=== PATIENT | male | born 1960 | race Caucasian/White ===

== ENCOUNTER 2020-02-04 05:44 | Day surgery (SDC) | payer OTHER, BC, SELFPAY ==
[2020-02-04] VITALS (8 sets, daily range): BP systolic 95–148; BP diastolic 65–101; PULSE 66–87; RESP 16–18; TEMP 35.7–37.2; O2SAT 96–100; BMI 28.7
--- NOTE | 2020-02-04 06:15 | PCM.HP.STD ---
Problem List (1) Personal history of colonic polyps Status: Acute History of Present Illness Date of Admission: 02/04/20 The patient is a 59 year old M who has a personal history of colon polyp on a polypectomy that was performed for him in 2015. That was a sizable polyp at 12 mm. It was an adenomatous polyp. There was no dysplasia. He denies bright red blood per rectum or melena. He does chew tobacco. His mother of breast cancer and his father of lung cancer. He has not had any deep venous thrombosis. He denies DC or stroke Past Medical History Past Medical History (Chronic Problems): Chronic Problems Obesity (Chronic) Benign essential HTN (Chronic) Allergies No Known Allergies Allergy (Verified 02/04/20 05:58) Home Medications: Ambulatory Orders Medication Instructions Recorded Atenolol [Tenormin (beta Russell)] 25 mg PO DAILY 02/03/20 Cetirizine HCl [Zyrtec] 10 mg PO DAILY 02/03/20 Rosuvastatin Calcium [Crestor] 5 mg PO .Q2DAYS 02/03/20 Surgical History: noncontributory Smoking Status: Current every day smoker Tobacco Use: Chew Review of Systems Constitutional: Denies: Chills, Fever Cardiovascular: Denies: Chest Pain Respiratory: Denies: Cough Gastrointestinal: Denies: Abdominal Pain, Hematochezia, Melena Endocrine: Denies: Change in Body Habitus VTE Information - Inpt Only VTE Present on Admission: No - Physical Exam Vitals/I&O's: Vital Signs Temp Pulse Resp BP Pulse Ox 96.3 F L 87 16 122/94 H 98 02/04/20 05:59 02/04/20 05:59 02/04/20 05:59 02/04/20 05:59 02/04/20 05:59 Oxygen Delivery Method Room Air Weight: 211 lb 10.3 oz Body Mass Index (BMI) 28.7 General: Alert, Oriented x3, Cooperative Oral: Moist Mucosa Lungs: Clear to auscultation Cardiovascular: Regular rate, Regular Rhythm Abdomen: Bowel Sounds Present, Soft, Non Tender Neurological: - - Normal cognition Psych/Mental Status: Normal Affect Microbiology Past 72 Hours 02/03/20 11:26 Interface Orders SARS-CoV-2 Antigen (Rapid) - Final Assessment/Plan All Active Problems Personal history of colonic polyps (Acute) I recommend to the patient a colonoscopy with possible biopsy or polypectomy is indicated. He is aware of the technique, benefit, risk, alternatives. He has had an opportunity to ask and have questions answered. He presents via open access today. Rickie Martin M.D., F.A.C.S.
[2020-02-04] MEDS: Lactated Ringers 1,000 ML 100 ML IV (06:25)
--- NOTE | 2020-02-04 06:55 | OP.COLON_ITS ---
Patient Name: Zac Cotter Procedure Date: 02/04/2020 6:12 AM Date of : 1960 Age: 59 Procedure: Colonoscopy Indications: High risk colon cancer surveillance: Personal history of colonic polyps Providers: Rickie Martin MD Referring MD: Chandrakant Azul Medicines: Midazolam 4 mg IV, Meperidine 100 mg IV Patient Profile: Last Colonoscopy: 2015. Complications: No immediate complications. Procedure: Pre-Anesthesia Assessment: - Prior to the procedure, a History and Physical was performed, and patient medications and allergies were reviewed. The patient's tolerance of previous anesthesia was also reviewed. The risks and benefits of the procedure and the sedation options and risks were discussed with the patient. All questions were answered, and informed consent was obtained. Prior Anticoagulants: The patient has taken no previous anticoagulant or antiplatelet agents. ASA Grade Assessment: II - A patient with mild systemic disease. After reviewing the risks and benefits, the patient was deemed in satisfactory condition to undergo the procedure. After I obtained informed consent, the scope was passed under direct vision. Throughout the procedure, the patient's blood pressure, pulse, and oxygen saturations were monitored continuously. The colonoscope was introduced through the anus and advanced to the cecum, identified by appendiceal orifice and ileocecal valve. The colonoscopy was performed without difficulty. The patient tolerated the procedure well. The quality of the bowel preparation was adequate to identify polyps. The ileocecal valve and the appendiceal orifice were photographed. Moderate Sedation: Moderate (conscious) sedation was personally administered by the endoscopist. The following parameters were monitored: oxygen saturation, heart rate, blood pressure, and response to care. Total physician intraservice time was 15 minutes. Scope In: 6:33:19 AM Scope Withdrawal Time 0 hours 7 minutes 58 seconds Scope Out: 6:47:13 AM Total Procedure Duration Time 0 hours 13 minutes 54 seconds Findings: Hemorrhoids were found on perianal exam. The digital rectal exam findings include non-thrombosed internal hemorrhoids and internal hemorrhoids that prolapse with straining, but spontaneously regress to the resting position (Grade II). Pertinent negatives include normal prostate (size, shape, and consistency). Multiple diverticula were found in the sigmoid colon and descending colon. Impression: - Hemorrhoids found on perianal exam. - Non-thrombosed internal hemorrhoids and internal hemorrhoids that prolapse with straining, but spontaneously regress to the resting position (Grade II) found on digital rectal exam. - Diverticulosis in the sigmoid colon and in the descending colon. - No specimens collected. Recommendation: - Discharge patient to home. - Resume previous diet. - Continue present medications. - Repeat colonoscopy in 5 years for surveillance. Procedure Code(s): --- Professional --- 47212, Colonoscopy, flexible; diagnostic, including collection of specimen(s) by brushing or washing, when performed (separate procedure) 51481, 59, Moderate sedation services provided by the same physician or other qualified health manager urgent care performing the diagnostic or therapeutic service that the sedation supports, requiring the presence of an independent trained observer to assist in the monitoring of the patient's level of consciousness and physiological status; initial 15 minutes of intraservice time, patient age 5 years or older Diagnosis Code(s): --- Professional --- Z86.010, Personal history of colonic polyps K64.1, Second degree hemorrhoids K57.30, Diverticulosis of large intestine without perforation or abscess without bleeding CPT copyright 2017 [employer]. All rights reserved. The codes documented in this report are preliminary and upon cloth tester review may be revised to meet current compliance requirements. Rickie Martin MD 02/04/2020 6:55:14 AM This report has been signed electronically. Number of Addenda: 0 Note Initiated On: 02/04/2020 6:12 AM
--- NOTE | 2020-02-04 06:56 | OP.CCLET_ITS ---
02/04/2020 Chandrakant Azul Re : Colonoscopy procedure for Zac Cotter Dear Jorge Alberto This procedure was performed on Tuesday, February 04, 2020. My impressions and recommendations are as follows: Impressions : - Hemorrhoids found on perianal exam. - Non-thrombosed internal hemorrhoids and internal hemorrhoids that prolapse with straining, but spontaneously regress to the resting position (Grade II) found on digital rectal exam. - Diverticulosis in the sigmoid colon and in the descending colon. - No specimens collected. Recommendations : - Discharge patient to home. - Resume previous diet. - Continue present medications. - Repeat colonoscopy in 5 years for surveillance. My findings are described in the full procedure note, which is enclosed. If I can be of further assistance, please feel free to contact me at Doctor phone number(s): Work: . Sincerely, Rickie Martin MD 02/04/2020 6:55:14 AM This report has been signed electronically.
== END 2020-02-04 07:35 | disposition home or self-care (01) ==
LOC: EN 05:44 → AC 05:44
PROVIDERS: PCP Family Medicine; Referring Provider Family Medicine; Visit Provider Surgery
PROC: 0DJD8ZZ Inspection of Lower Intestinal Tract, Via Natural or Artificial Opening Endoscopic (ICD-10-PCS; CPT 45378; principal; 2020-02-04 06:55)
DX: Z12.11 Encounter for screening for malignant neoplasm of colon (principal); Z86.010 Personal history of colon polyps; K64.1 Second degree hemorrhoids; K57.30 Diverticulosis of large intestine without perforation or abscess without bleeding; E66.9 Obesity, unspecified; I10 Essential (primary) hypertension; Z63.4 Disappearance and death of family member; Z80.3 Family history of malignant neoplasm of breast; Z87.19 Personal history of other diseases of the digestive system; Z68.28 Body mass index [BMI] 28.0-28.9, adult
CPT/HCPCS: 45378; 87426; C9803; J7120

== ENCOUNTER 2023-08-10 11:18 | Emergency (ER) | payer OTHER, BC, SELFPAY ==
[2023-08-10 11:19] VITALS: BP 166/105; PULSE 94; RESP 16; TEMP 36.6; O2SAT 96; BMI 29.0
--- NOTE | 2023-08-10 11:42 | CT_ITS ---
STUDY: CT ABDOMEN AND PELVIS WITH CONTRAST - URINARY TRACT REASON FOR EXAM: Male, 62 years old. PAIN RADIATION DOSAGE (If Supplied By Facility): CTDIvol = ( 17.70 ) mGy, DLP = ( 1221.32 ) mGycm TECHNIQUE: IV 100mL Isovue-370 was administered. Transaxial images were obtained from the dome of the diaphragm to the symphysis pubis subsequent to intravenous contrast ministration. Multiplanar coronal and sagittal images were reformatted. The protocol utilizes one or more of the following dose reduction techniques: automated exposure control, adjustment of mA and/or kV according to patient size,and/or use of iterative reconstruction technique. COMPARISON: No relevant prior comparison study available FINDINGS: The visualized lung bases are unremarkable. The visualized portions of the heart are within normal limits. Normal liver. Normal gallbladder and extrahepatic biliary system. There are splenic granulomas. Normal pancreas. Normal bilateral adrenal glands. Normal visualized stomach. Normal small intestine. Normal colon. The appendix is visualized and appears normal. Normal abdominal aorta. No retroperitoneal adenopathy. Normal right kidney. Normal left kidney. Normal urinary bladder. There is enlargement of the prostate gland. There are calcifications within the prostate gland. Normal abdominal wall. There are diffuse degenerative changes of the lumbar spine. CT/Abdomen/Pelvis W IV Cont ONLY IMPRESSION: No acute intra-abdominal process. Enlarged prostate gland. Degenerative changes of the lumbar spine. Electronically Signed: Charo Ray MD at 12:31 EDT ,
--- NOTE | 2023-08-10 11:43 | EDS_ITS ---
HPI History of Present Illness Chief Complaint: Abd Pain Informant: patient and spouse/S.O. Narrative Narrative: 62-year-old male presenting to the emergency room chief complaint of right lower quadrant abdominal pain. Symptoms began on with a gradual onset of pain. He describes it as an ache that waxes and wanes. It is worse with movement and walking bumps in the road. Today he had a doughnut around 0700 hrs. and a cup of coffee has been drinking water since. He does endorse some anorexia stating food just really does not sound good to him. Has not had a bowel movement today but did have a bowel movement yesterday which she describes as normal. Notes his urine is darker than normal. He had prior kidney stone which has not felt like this. He does note some radiation into the low back. No vomiting no definitive fever. He has had prior left inguinal hernia repair as well as a tonsillectomy as a child. Patient denies any testicular pain/discomfort. No burning with urination. [facility] Medical History (Updated 08/10/23 @ 13:[address] Vega Leos DO) Benign essential HTN Home Medications ?Medication ?Instructions ?Recorded ?Last Taken ?Type atenolol 25 mg tablet 25 mg PO DAILY 02/03/20 02/04/20 History cetirizine 10 mg capsule 10 mg PO DAILY 02/03/20 Unknown History rosuvastatin 5 mg tablet 5 mg PO .Q2DAYS 02/03/20 Unknown History oxycodone-acetaminophen 5 mg-325 1 tab PO Q6H PRN PRN Pain 3 days 08/10/23 Unknown Rx mg tablet #12 TABLETS Allergy/AdvReac Type Severity Reaction Status Date / Time No Known Allergies Allergy Verified 08/10/23 11:20 Surgical History (Updated 08/10/23 @ 11:[address] Vega Leos DO) H/O left inguinal hernia repair History of tonsillectomy Social History Smoking Status: Current every day smoker tobacco type: cigarettes ROS ROS ED Constitutional Constitutional ED: Reports fever(s) and subjective; Denies chills or weight loss Eyes Eyes: Denies change in vision or diplopia ENT ENT ED: Denies ear pain, rhinorrhea or sore throat Cardiovascular Cardiovascular: Denies chest pain, orthopnea, palpitations or racing heartbeat Respiratory/Chest Respiratory/Chest: Denies cough, dyspnea or orthopnea Gastrointestinal Gastrointestinal: Reports abdominal pain, constipation and other Details: Anorexia ; Denies diarrhea, nausea or vomiting Genitourinary Genitourinary ED: Denies dysuria, hematuria or urinary frequency Musculoskeletal Musculoskeletal: Reports back pain; Denies arthralgias, myalgias or neck pain Integumentary Denies abscess or rash Neurologic Neurologic: Denies headache(s) or weakness Psychiatric Psychiatric: Denies anxiety, depression, suicidal ideation or suicidal thoughts Endocrine Endocrinology: Denies polydipsia, polyphagia or polyuria Allergic/Immunologic Allergic/Immunologic ED: Denies mouth swelling, tongue swelling or urticaria EXAM Physical Exam Const Vital Signs: 08/10/23 11:19 Temperature 97.8 F Temperature Source Temporal Pulse Rate 94 Respiratory Rate 16 Blood Pressure 166/105 H Blood Pressure Mean 125 Pulse Ox 96 Oxygen Delivery Method Room Air Positive well nourished and well developed General Appearance ED: well developed HEENT Reports normocephalic, head/scalp atraumatic and moist mucous membranes Eyes PERRL and EOMs intact bilaterally Neck no lymphadenopathy, supple and no JVD Resp normal respiratory effort and clear to auscultation bilaterally Cardio regular rate, regular rhythm and no murmurs GI non-distended and no masses Inspection: Negative for abdominal distention Auscultation: normoactive bowel sounds Palpation: soft, tender RLQ and guarding Back/Spine no CVA tenderness and normal ROM Extremity normal to inspection General Extremety ED: Negative for edema General Extremity: Negative for edema Neuro oriented x3 and CN's II-XII intact bilaterally Sensorium / Orientation: alert Motor Exam: strength 5/5 throughout Psych mental status grossly normal Mood & Affect: Negative for depressed or tearful Skin no rashes or lesions noted and no wounds MDM MDM MDM Narrative Medical decision making narrative: Basic blood work was obtained shows a white count of 4.7 hemoglobin 15.6 platelet count of 180. There is an elevated monocyte count of 12.2%. BNP liver enzymes are within normal limits. Urinalysis normal. CT of the ab pelvis with IV contrast was obtained. Normal-appearing appendix per radiology review. No obvious intra-abdominal pathology. Patient received morphine Zofran and fluids as well as later Dilaudid. This point I do not see an obvious cause for the patient's pain. Would recommend follow-up 1 to 2 days if continued symptoms return if worsening or concerns. I will write for some Percocet. Patient is comfortable with the plan History & Record Review Discussion w/independent historian: Patient and Significant other Lab Data Attestation: I reviewed the patient's lab results. Labs: Laboratory Results - last 24 hr 08/10/23 08/10/23 11:30 12:30 WBC 4.7 RBC 5.23 Hgb 15.6 Hct 46.1 MCV 88.1 MCH 29.8 MCHC 33.8 RDW Std Deviation 41.6 RDW Coeff of Edgardo 13.0 Plt Count 180 MPV 8.7 Immature Gran % (Auto) 0.400 Neut % (Auto) 62.8 Lymph % (Auto) 23.4 [place] % (Auto) 12.2 H Eos % (Auto) 0.6 Baso % (Auto) 0.6 Absolute Neuts (auto) 3.0 Absolute Lymphs (auto) 1.11 Nucleated RBC % 0 Sodium 136 Potassium 3.8 Chloride 105 Carbon Dioxide 28.0 Anion Gap 3 L BUN 11 Creatinine 1.01 Estim Creat Clear Calc 92.76 Est GFR (MDRD) Af Amer 96 Est GFR (MDRD) Non-Af 80 BUN/Creatinine Ratio 10.9 Glucose 105 Calcium 8.5 Total Bilirubin 0.70 AST 13 L ALT 20 Alkaline Phosphatase 102 Total Protein 6.6 Albumin 3.7 Globulin 2.9 Albumin/Globulin Ratio 1.3 Urine Color Yellow Urine Clarity Clear Urine pH 6.5 Ur Specific [place] 1.010 Urine Protein Negative Urine Glucose (UA) Normal Urine Ketones Negative Urine Occult Blood 25 H Urine Nitrite Negative Urine Bilirubin Negative Urine Urobilinogen Normal Ur Leukocyte Esterase Negative Urine RBC 0 SEEN Urine WBC 0 SEEN Ur Squamous Epith Cells 0 SEEN Urine Bacteria 0 SEEN Urine Mucus 0 SEEN Radiography Diagnostic Testing: Clinical Impression(s) from Imaging Studies Abdomen/Pelvis CT 08/10/23 11:42 IMPRESSION: No acute intra-abdominal process. Enlarged prostate gland. Degenerative changes of the lumbar spine. Electronically Signed: Charo Ray MD at 12:31 EDT , Discharge Plan Triage Chief Complaint: Abd Pain ED Provider: Vega Leos Dx/Rx/DC Orders Clinical Impression: Abdominal pain Instructions: Abdominal Pain Prescriptions: New oxycodone-acetaminophen 5-325 mg tablet 1 tab PO Q6H PRN PRN (Reason: Pain) 3 Days Qty: 12 0RF No Action atenolol 25 MG tablet 25 mg PO DAILY rosuvastatin 5 MG tablet 5 mg PO .Q2DAYS cetirizine 10 MG capsule 10 mg PO DAILY Primary Care Provider: JULIAN YEPEZ Referrals: NOT,DEFINED [Non-Staff] - Activity Restrictions/Additional Instructions: If continued symptoms please return for repeat examination 1-2 days or follow-up with primary care. If any new symptoms please return to emergency. Print Language: [place]i Disposition Disposition: Home, Self Care
[2023-08-10 11:49] LABS: Absolute Lymphocyte Count 1.11 X10^3/uL (0.83-4.51); Basophil# 0.03 X10^3/uL; Basophil% 0.6 % (0-1); Eosinophil# 0.03 X10^3/uL; Eosinophils% 0.6 % (0-5); Hematocrit 46.1 % (40-54); Hemoglobin 15.6 g/dL (13.0-16.5); Lymphocyte # 1.11 X10^3/ul (0.83-4.51); Lymphocyte % 23.4 % (19-41); Mean Corp Hgb Conc 33.8 g/dL (32-36); Mean Corpuscular Hgb 29.8 pg (27.0-32.0); Mean Corpuscular Volume 88.1 fL (80-94); Mean Platelet Vol. 8.7 fl (6.2-12.0); Monocyte# 0.58 X10^3/uL; Monocyte% 12.2 % (0-10); NRBC Flagged by Analyzer 0 % (0-5); Neutrophil # 2.97 X10^3/uL (2.7-7.7); Neutrophil % 62.8 % (47-70); Platelet Count 180 K/mm3 (150-450); RBC Distribution Width SD 41.6 fl (35.1-43.9); Red Blood Count 5.23 M/mm3 (4.6-6.2); White Blood Count 4.7 K/mm3 (4.4-11.0)
[2023-08-10] MEDS: 0.9% Normal Saline (1000mL) 1,000 ML 999 ML IV (11:49)
[2023-08-10] MEDS: Morphine 4 MG/ML Syringe IV (11:49)
[2023-08-10] MEDS: Ondansetron 4 MG/2 ML Vial IV (11:49)
[2023-08-10 12:06] LABS: ALB/GLOB Ratio 1.3 RATIO (0.9-2.4); AST(SGOT) 13 U/L (15-37); Alanine Aminotransfer ALT/SGPT 20 U/L (16-61); Albumin, Serum 3.7 g/dL (3.2-5.0); Alkaline Phosphatase 102 U/L (45-117); Anion Gap 3 (5-15); BUN 11 mg/dL (7-18); BUN/Creat Ratio 10.9 RATIO (10-20); Calcium,Total 8.5 mg/dL (8.5-10.1); Chloride 105 mmol/L (98-107); Creatinine, Serum 1.01 mg/dL (0.70-1.30); EST Glomerular Filtration Rate 80 mL/min (>60); Est Glom Filt Rate - Afr Amer 96 mL/min (>60); Estimated Creatinine Clearance 92.76 ml/min; Globulin 2.9 g/dL (2.2-4.2); Glucose 105 mg/dL (74-106); Potassium 3.8 mmol/L (3.5-5.1); Protein, Total 6.6 g/dL (6.4-8.2); Sodium Level 136 mmol/L (136-145)
[2023-08-10 12:36] LABS: Bacteria 0 SEEN /hpf (None Seen); Mucous, Urine 0 SEEN /hpf (<or=2+); Red Blood Cells-Urine 0 SEEN /hpf (0-5); Squamous Epithelial Cells - UA 0 SEEN /hpf (0-5); White Blood Cells 0 SEEN /hpf (0-5)
[2023-08-10 12:37] LABS: Color, Urine Yellow (Yellow); Glucose, Dipstick Normal (Normal); Ketone-Dipstick Negative (Negative); Leukocyte Esterase-Dipstick Negative /ul (Negative); Nitrite-Dipstick Negative (Negative); Occult Blood-Urine 25 /ul (Negative); Protein-Dipstick Negative (Negative); Urine Bilirubin Dipstick Negative (Negative); Urine Clarity Clear (Clear); Urine Urobilinogen Normal (Normal); Urine pH 6.5 (5.0 - 8.0)
[2023-08-10] MEDS: HYDROmorphone 1 MG/ML Syringe IV (12:48)
[2023-08-10 13:19] VITALS: BP 138/56; PULSE 78; RESP 16; O2SAT 98
[2023-08-10 13:44] VITALS: PULSE 78; RESP 16; TEMP 36.4; O2SAT 98
== END 2023-08-10 13:44 | disposition home or self-care (01) ==
PROVIDERS: Emergency Provider Emergency Medicine; PCP Nurse Practitioner Family; Visit Provider Emergency Medicine
DX: R10.31 Right lower quadrant pain (principal); F17.210 Nicotine dependence, cigarettes, uncomplicated; I10 Essential (primary) hypertension; Z79.899 Other long term (current) drug therapy
CPT/HCPCS: 74177; 80053; 81001; 85025; 96361; 96374; 96375; 99284; Q9967; A4216; J2405

== ENCOUNTER 2024-01-24 13:41 | Emergency (ER) | payer OTHER, BC, SELFPAY ==
[2024-01-24 13:42] VITALS: BP 150/91; PULSE 83; RESP 18; TEMP 36.4; O2SAT 100; BMI 29.4
--- NOTE | 2024-01-24 14:47 | EX.ED.VIS.EY ---
HPI History of Present Illness Chief Complaint: Eye Problem [facility] Medical History Benign essential HTN Home Medications ?Medication ?Instructions ?Recorded ?Last Taken ?Type atenolol 25 mg tablet 25 mg PO DAILY 02/03/20 02/04/20 History cetirizine 10 mg capsule 10 mg PO DAILY 02/03/20 Unknown History rosuvastatin 5 mg tablet 5 mg PO .Q2DAYS 02/03/20 Unknown History oxycodone-acetaminophen 5 mg-325 1 tab PO Q6H PRN PRN Pain 3 days 08/10/23 Unknown Rx mg tablet #12 TABLETS ciprofloxacin HCl 0.3 % eye drops 1 drp RIGHT EYE Q6H 5 days #10 mL 01/24/24 Unknown Rx Allergy/AdvReac Type Severity Reaction Status Date / Time No Known Allergies Allergy Verified 01/24/24 13:42 Surgical History H/O left inguinal hernia repair History of tonsillectomy Social History Smoking Status: Current every day smoker tobacco type: cigarettes EXAM Physical Exam Const Vital Signs: 01/24/24 13:42 Temperature 97.6 F L Temperature Source Temporal Pulse Rate 83 Respiratory Rate 18 Blood Pressure 150/91 H Blood Pressure Mean 110 Pulse Ox 100 [facility] Narrative Medical decision making narrative: HISTORY OF PRESENT ILLNESS: 63-year-old male presents with right eye pain. Notes he was seen in urgent care and his eye numbed. He notes at urgent care they sent him to the emergency department because something was in his eye. The patient does not wear contacts REVIEW OF SYSTEMS: Pertinent positives: Eye pain Pertinent negatives: Loss of vision PHYSICAL EXAM: Nursing triage notes reviewed, Vital signs reviewed Constitutional: please see mdm HENT: MMM Eyes: Pupils equal round and reactive to light, Extraocular muscles intact, visual acuity 20/50 OD, 20/70 OS, fluorescein staining without evidence of globe rupture, there is a small metallic foreign body noted at the 12 o'clock position just superior to the pupil along the iris. There is conjunctival injection noted in the right eye. Skin: No rash or lesions noted MEDICAL DECISION MAKING: Chief Complaint: Eye pain Consults: Ophthalmology (Dr. Flowre) [facility] Narrative: Patient was hemodynamically stable, afebrile and nontoxic-appearing. Visual acuity grossly intact. Exam without evidence of corneal abrasion, globe rupture. Noted evidence of foreign body at the 12 o'clock position not involving the pupil. I considered the following differential diagnosis: Globe rupture, corneal abrasion, foreign body Tetracaine was placed, fluorescein staining done. No evidence of globe rupture. No evidence of corneal abrasion on fluorescein staining. Noted foreign body was removed partially with a Q-tip. Then attempted insulin needle removal however this failed. Patient will require ophthalmology evaluation. Offered acute transfer for ophthalmology however patient refused that he prefer to follow-up as outpatient Friday. Discussed with senior net web developer on-call Dr. Flower who recommended topical antibiotics and prompt follow-up in the next 24 to 48 hours. The patient and/or family, caregivers express understanding. The patient and/or family, caregivers agrees with the plan. Shared decision making: I will have a discussion with the patient and or visitors regarding risk/benefits of further testing or admission. They will be made aware of of the risk/benefits inherent in this decision they will be given the opportunity to voice understanding. Total critical care time today provided was at least 0 minutes. This excludes separately billable procedures. Critical care time (if documented) is secondary to the patient having high probability of clinically significant/life threatening deterioration in the patient's condition which required my urgent intervention. Impression: 1. Right eye foreign body 2. Acute high pain Dispo: Discharge home This note was generated with fundfindr dictation software. It may contain incorrect words, spelling, and punctuation that were not noted in review of the chart prior to signing. Discharge Plan Triage Chief Complaint: Eye Problem ED Provider: Bassam Oconnell Dx/Rx/DC Orders Instructions: ED RUST RING Prescriptions: New ciprofloxacin HCl 0.3 % drops 1 drp RIGHT EYE Q6H 5 Days Qty: 10 0RF Rx Instructions: administer while awake No Action atenolol 25 MG tablet 25 mg PO DAILY rosuvastatin 5 MG tablet 5 mg PO .Q2DAYS cetirizine 10 MG capsule 10 mg PO DAILY oxycodone-acetaminophen 5-325 mg tablet 1 tab PO Q6H PRN PRN (Reason: Pain) 3 Days Qty: 12 0RF Primary Care Provider: JULIAN YEPEZ Referrals: JULIAN YEPEZ CRNP [Primary Care Provider] - Activity Restrictions/Additional Instructions: Thank you for trusting us with your care today! Please take Tylenol (2 pills, 650 mg), ibuprofen (2 pills, 400 mg) every 6 hours as needed for pain and fever control. Please take topical antibiotics as prescribed. Please use tetracaine sparingly only 1 drop every 12 hours. Please return to the emergency department if your symptoms change or worsen. Please follow with your primary care physician for further outpatient evaluation and management. Print Language: Finnish Disposition Disposition: Home, Self Care Discharge Date/Time: 01/24/24 16:05
[2024-01-24] MEDS: Fluorescein 1 MG STRIP 1 STRIP EACH EYE (14:59)
[2024-01-24] MEDS: Tetracaine 0.5% Ophthalmic Bottle 1 DRP EACH EYE (14:59)
[2024-01-24] MEDS: Diphth,Pertuss(Acell),Tet Vac 0.5 ML Vial IM (15:59)
== END 2024-01-24 16:05 | disposition home or self-care (01) ==
PROVIDERS: Emergency Provider Emergency Medicine; PCP Nurse Practitioner Family; Visit Provider Emergency Medicine
DX: T15.91XA Foreign body on external eye, part unspecified, right eye, initial encounter (principal); I10 Essential (primary) hypertension; H57.11 Ocular pain, right eye; F17.210 Nicotine dependence, cigarettes, uncomplicated; W44.8XXA Other foreign body entering into or through a natural orifice, initial encounter; Z23 Encounter for immunization
CPT/HCPCS: 90471; 90715; 99282

== ENCOUNTER 2024-08-27 06:44 | Day surgery (SDC) | payer OTHER, BC, SELFPAY ==
[2024-08-27] VITALS (8 sets, daily range): BP systolic 106–140; BP diastolic 79–95; PULSE 60–80; RESP 16; TEMP 36.1–36.6; O2SAT 97–99; BMI 28.2
--- OUTSIDE RECORDS SUMMARY | 2024-08-27 06:46 | XMS RPT_ITS | CCD ---
Author Organization [place] [facility] Care Team Providers Care Rheumatology Nurse Name Role Phone TARYN ARTEAGA Attending Unavailable TARYN ARTEAGA Primary Care Unavailable TARYN ARTEAGA Admitting Unavailable Krista Azul Unavailable Mirna Robins Unavailable Unavailable Krista Azul MD Primary Care Provider KRISTA AZUL Primary Care Unavailable SPRING, JULIAN Attending Unavailable SPRING, JULIAN Referring Unavailable SPRING, JULIAN Primary Care Unavailable SPRING, JULIAN Referring Unavailable Ran Hernandez Attending Unavailable SPRING, JULIAN Primary Care Unavailable SPRING, JULIAN Attending Unavailable SPRING, JULIAN Referring Unavailable SPRING, JULIAN Primary Care Unavailable SPRING, JULIAN Primary Care Unavailable Bassam Oconnell Attending Unavailable Medications Current Medications Medication Drug Class(es) Dates Sig (Normalized) Sig (Original) acetaminophen 325 mg / HYDROcodone bitartrate 5 mg oral tablet (1 source) Opioid Agonist Start: 05-15-2016 take 1 tablet by mouth every four hours as needed HYDROcodone-acetam inophen (NORCO) 5-325 mg per tablet Take 1 tablet by mouth every 4 hours as needed. 15 tablet 05/15/2016 Active aspirin 81 mg delayed release oral tablet (1 source) Platelet Aggregation Inhibitor, Nonsteroidal Anti-inflammatory Drug take 1 tablet by mouth once daily aspirin, enteric coated (ASPIRIN, ENTERIC COATED) 81 mg EC tablet Take 81 mg by mouth once daily. Active atenolol 25 mg oral tablet (2 sources) beta-Adrenergic Russell take 1 tablet by mouth once daily atenolol (TENORMIN) 25 mg tablet Take 25 mg by mouth once daily. Active azithromycin 250 mg oral tablet (1 source) Macrolide Antimicrobial Start: 08-04-2020 End: 08-08-2020 Azithromycin 5 Day Dose Pack 250 mg oral tablet ; take as directed on package Quantity: 6 Refills: 0 Ordered: 04-Aug-2020 Mirna oRbins Start: 04-Aug-2020 End: 08-Aug-2020 Generic Substitution Allowed Comments: Do not take dairy products, antacids, or iron preparations within one hour of this medication.Finish all this medication unless otherwise directed by prescriber. Comment on above: Do not take dairy pr oducts, antacids, or iron preparations within one hour of this medication.Finish all this medication unless otherwise directed by prescriber. benzonatate 100 mg oral capsule (1 source) Non-narcotic Antitussive Start: 04-30-2019 take 2 capsules by mouth every eight hours as needed benzonatate (TESSALON PERLE) 100 mg capsule Take 2 capsules by mouth three times daily as needed. 30 capsule 04/30/2019 Active cetirizine hydrochloride 10 mg oral capsule (1 source) Histamine-1 Receptor Antagonist Cetirizine 10 mg cap Take 1 tablet by mouth as needed. Active OTC NUTRITIONAL SUPPLEMENT (1 source) OTC NUTRITIONAL SUPPLEMENT LIMU- seaweed nutrional supplement Active rosuvastatin calcium 5 mg oral tablet (1 source) HMG-CoA Reductase Inhibitor take 1 tablet by mouth once daily rosuvastatin (CRESTOR) 5 mg tablet Take 5 mg by mouth once daily. Active Problems Active Problems Problem Classification Problem Date Documented Da te Episodic/Chronic Disorders of lipid metabolism (1 source) Hyperlipidemia, unspecified; Translations: [Hyperlipidemia, unspecified] Onset: 08-23-2024 Chronic Essential hypertension (1 source) Essential (primary) hypertension; Translations: [Essential (primary) hypertension] Onset: 08-23-2024 Chronic Other injuries and conditions due to external causes (1 source) Foreign body of eye region; Translations: [Foreign body on external eye, part unspecified, right eye, initial encounter] 01-24-2024 Episodic Other upper respiratory infections (1 source) Acute maxillary sinusitis; Translations: [Acute maxillary sinusitis] 08-04-2020 Episodic Substance-related disorders (1 source) Nicotine dependence, other tobacco product, uncomplicated; Translations: [Nicotine dependence, other tobacco product, uncomplicated] Onset: 08-23-2024 Chronic Transient cerebral ischemia (1 source) Transient cerebral ischemia; Translations: [Transient cerebral ischemic attack, unspecified] Onset: 05-13-2016 05-13-2016 Chronic Unclassified (2 sources) COUGH CHEST CONGESTION SINUS 08-04-2020 Comment on above: COUGH CHEST CONGESTI ON SINUS Unclassified (1 source) Sinusitis, acute, maxillary 08-04-2020 Past or Other Problems Problem Classification Problem Date Documented Da te Episodic/Chronic Abdominal hernia (2 sources) Umbilical hernia; Translations: [Umbilical hernia without obstruction or gangrene] Onset: 04-23-2016 04-23-2016 Episodic Abdominal pain (1 source) Right inguinal pain; Translations: [Right lower quadrant pain] Onset: 04-23-2016 04-23-2016 Episodic Other eye disorders (1 source) Unspecified disorder of eye and adnexa; Translations: [Unspecified disorder of eye and adnexa] Onset: 02-12-2024 Episodic Residual codes; unclassified (1 source) Tobacco use and exposure - finding; Translations: [Tobacco use] Onset: 05-13-2016 05-13-2016 Episodic Results Test Name Value Interpretation Reference Range Facil ity CNOVon 01-24-2024 [facility] MUNIR PARHAM ([id number]) 1960 M Date Time Provider Department 01/24/24 1:30 PM JOHN ROSARIO [facility] During your visit today, we recorded the following information about you: Temperature Pulse Respiration Blood pressure 96.9 degrees 98/minute 18/minute 130/84 Weight 98.5 kg John Rosario APRN.MATHEMATICS LECTURER 01/24/2024 1:43 PM Signed Subjective HPI Nontoxic-appearing male presents urgent care chief complaint right eye pain. Duration of symptoms 1 day. Associate symptoms right eye pain light sensitivity. States pain is worsening. Rates pain 9 out of 10. States vision is slightly blurry. Was blowing the leaves does not know if he has something in his eye. This was on . At that time he did not notice any foreign body sensation. Also does work as a janitorial maintenance worker. Does not know if he got a piece of metal in the thigh. OTC medications none. does not wear contacts. No flashes light or floaters. Past medical history prescription medications allergies reviewed. .Patient presents with: Eye Problem: light sensitivity and pain in right eye x 1 day, was blowing leaves on PAST MEDICAL HISTORY Diagnosis Date Allergic rhinitis DDD (degenerative disc disease), lumbar Deviated septum Hypertension Inguinal hernia Kidney stones Mixed hyperlipidemia Nasal polyp TIA (transient ischemic attack) 2011 Tobacco use Umbilical hernia PAST SURGICAL HISTORY Procedure Laterality Date COLONOSCOPY FLX DX W/COLLJ SPEC WHEN PFRMD 10/16/2015 Colonoscopy/next with mac LAP UMBILICAL HERNIA REPAIR REMOVAL NASAL POLYP UNILATERAL MULTIPLE REPAIR INGUINAL HERNIA RHINOPLASTY polpectomy RHINOPLASTY deviated septum repair ALLERGIES Patient has no known allergies. MEDICATIONS atenolol (TENORMIN) 25 mg tablet Take 25 mg by mouth once daily. aspirin, enteric coated (ASPIRIN, ENTERIC COATED) 81 mg EC tablet Take 81 mg by mouth once daily. Cetirizine 10 mg cap Take 1 tablet by mouth as needed. rosuvastatin (CRESTOR) 5 mg tablet Take 5 mg by mouth once daily. (Patient not taking: Reported on 01/24/2024) benzonatate (TESSALON PERLE) 100 mg capsule Take 2 capsules by mouth three times daily as needed. (Patient not taking: Reported on 01/24/2024) HYDROcodone-acetamino phen (NORCO) 5-325 mg per tablet Take 1 tablet by mouth every 4 hours as needed. OTC NUTRITIONAL SUPPLEMENT LIMU- seaweed nutrional supplement (Patient not taking: Reported on 01/24/2024) FAMILY HISTORY Problem Relation Age of Onset Breast Cancer Mother Cancer Father lung Lung Cancer Brother Social History Tobacco Use Smoking status: Never Smokeless tobacco: Current Types: Chew Substance Use Topics Alcohol use: Yes Comment: rarely Drug use: No BP 130/84 Pulse 98 Temp 36.1 ?C (96.9 ?F) Resp 18 Wt 98.5 kg (217 lb 2.5 oz) SpO2 96% BMI 29.45 kg/m? Review of Systems Constitutional: Negative for chills, fever and malaise/fatigue. Eyes: Positive for blurred vision, photophobia, pain, discharge and redness. Negative for double vision. Musculoskeletal: Negative for back pain, falls, joint pain, myalgias and neck pain. Neurological: Negative for dizziness, loss of consciousness, weakness and headaches. Objective Physical Exam Constitutional: General: He is not in acute distress. Appearance: He is not toxic-appearing. HENT: Head: Normocephalic. Nose: Nose normal. Eyes: General: Lids are normal. Right eye: Foreign body and discharge present. No hordeolum. Conjunctiva/sclera: Right eye: Right conjunctiva is injected. Pupils: Pupils are equal, round, and reactive to light. Comments: Multiple corneal abrasions noted. Foreign body noted 2 o'clock position. Cardiovascular: Rate and Rhythm: Normal rate. Pulmonary: Effort: Pulmonary effort is normal. No respiratory distress. Musculoskeletal: Cervical back: Normal range of motion. Skin: General: Skin is warm and dry. Neurological: General: No focal deficit present. Mental Status: He is alert. ASSESSMENT/PLAN: 1. Foreign body of right eye, initial encounter - ICD9: 930.9, E914, ICD10: T15.91XA Diagnosis foreign body. Unable to remove. Concern for possible metal. Referred to ED. John Rosario APRN.MATHEMATICS LECTURER Allergies As of Date: 01/24/2024 (No Known Allergies) Date Reviewed: 01/24/2024 Reviewed by: Keila Garcia MA - Fully Assessed Reason for Visit: Eye Problem [43] Cmt: light sensitivity and pain in right eye x 1 day, was blowing leaves on Primary Visit Diagnosis:Foreign body of right eye, initial encounter [T15.91XA] Prescriptions as of 01/24/2024 - rosuvastatin (CRESTOR) 5 mg tablet Take 5 mg by mouth once daily. - benzonatate (TESSALON PERLE) 100 mg capsule Take 2 capsules by mouth three times daily as needed. - HYDROcodone-acetamino phen (NORCO) 5-325 (more content not included)... Normal [facility] Emergency Department Summary on 01-24-2024 Emergency Department Summary [facility] Medical Records Department [address] [place] [id number] Emergency Department Summary 01/24/24 MR#: [id number] Acct: [id number] Name: MUNIR PARHAM Rep #: [id number] : 1960 63 From: Bassam Oconnell DO PCP: JULIAN YEPEZ Status:DEP ER Location: ED [facility] History of Present Illness Chief Complaint: Eye Problem PFSH PFSH Medical History Benign essential HTN Home Medications ???Medication ???Instructions ???Recorded ???Last Taken ???Type atenolol 25 mg tablet 25 mg PO DAILY 02/03/20 02/04/20 History cetirizine 10 mg capsule 10 mg PO DAILY 02/03/20 Unknown History rosuvastatin 5 mg tablet 5 mg PO .Q2DAYS 02/03/20 Unknown History oxycodone-acetaminoph en 5 mg-325 1 tab PO Q6H PRN PRN Pain 3 days 08/10/23 Unknown Rx mg tablet #12 TABLETS ciprofloxacin HCl 0.3 % eye drops 1 drp RIGHT EYE Q6H 5 days #10 mL 01/24/24 Unknown Rx Allergy/AdvReac Type Severity Reaction Status Date / Time No Known Allergies Allergy Verified 01/24/24 13:42 Surgical History H/O left inguinal hernia repair History of tonsillectomy Social History Smoking Status: Current every day smoker tobacco type: cigarettes EXAM Physical Exam Const Vital Signs: 01/24/24 13:42 Temperature 97.6 F L Temperature Source Temporal Pulse Rate 83 Respiratory Rate 18 Blood Pressure 150/91 H Blood Pressure Mean 110 Pulse Ox 100 MDM MDM MDM Narrative Medical decision making narrative: HISTORY OF PRESENT ILLNESS: 63-year-old male presents with right eye pain. Notes he was seen in urgent care and his eye numbed. He notes at urgent care they sent him to the emergency department because something was in his eye. The patient does not wear contacts REVIEW OF SYSTEMS: Pertinent positives: Eye pain Pertinent negatives: Loss of vision PHYSICAL EXAM: Nursing triage notes reviewed, Vital signs reviewed Constitutional: please see mdm HENT: MMM Eyes: Pupils equal round and reactive to light, Extraocular muscles intact, visual acuity 20/50 OD, 20/70 OS, fluorescein staining without evidence of globe rupture, there is a small metallic foreign body noted at the 12 o'clock position just superior to the pupil along the iris. There is conjunctival injection noted in the right eye. Skin: No rash or lesions noted MEDICAL DECISION MAKING: Chief Complaint: Eye pain Consults: Ophthalmology (Dr. Flower) [facility] Narrative: Patient was hemodynamically stable, afebrile and nontoxic-appearing. Visual acuity grossly intact. Exam without evidence of corneal abrasion, globe rupture. Noted evidence of foreign body at the 12 o'clock position not involving the pupil. I considered the following differential diagnosis: Globe rupture, corneal abrasion, foreign body Tetracaine was placed, fluorescein staining done. No evidence of globe rupture. No evidence of corneal abrasion on fluorescein staining. Noted foreign body was removed partially with a Q-tip. Then attempted insulin needle removal however this failed. Patient will require ophthalmology evaluation. Offered acute transfer for ophthalmology however patient refused that he prefer to follow-up as outpatient Friday. Discussed with intervention analyst on-call Dr. Flower who recommended topical antibiotics and prompt follow-up in the next 24 to 48 hours. The patient and/or family, caregivers express understanding. The patient and/or family, caregivers agrees with the plan. Shared decision making: I will have a discussion with the patient and or visitors regarding risk/benefits of further testing or admission. They will be made aware of of the risk/benefits inherent in this decision they will be given the opportunity to voice understanding. Total critical care time today provided was at least 0 minutes. This excludes separately billable procedures. Critical care time (if documented) is secondary to the patient having high probability of clinically significant/life threatening deterioration in the patient's condition which required my urgent intervention. Impression: 1. Right eye foreign body 2. Acute high pain Dispo: Discharge home This note was generated with [employer] dictation software. It may contain incorrect words, spelling, and punctuation that were not noted in review of the chart prior to signing. Discharge Plan Triage Chief Complaint: Eye Problem ED Provider: Bassam Oconnell Dx/Rx/DC Orders Instructions: ED RUST RING Prescriptions: New ciprofloxacin HCl 0.3 % drops 1 drp RIGHT EYE Q6H 5 Days Qty: 10 0RF Rx Instructions: administer while awake No Action atenolol 25 MG tablet 25 mg PO DAILY ro (more content not included)... Normal [facility] Provider Note - ED v2on 05- Provider Note - ED v2 Provider Note - ED v2: Chart Review: ED NOTES ED NOTES: Patient came in with complaints of sinus pressure congestion. Patient has a lot of drainage she is coughing up green phlegm. Patient denies any other symptoms at this time. HISTORY OF PRESENTING ILLNESS MUNIR is a 59 year old Male and was seen by me at 04-Aug-2020 16:14. The historian is the patient. Triage Information: Most recent Vital Sign Value Date PAST MEDICAL HISTORY ATTESTATION: I have reviewed and confirmed nurse's/medic's notes for patient's medications, allergies, and medical, surgical, family and social history PSYCHOSOCIAL SCREENING: NO: concerns for safety at home, feelings of depression, feels like hurting others and feels like hurting self ALLERGIES/INTOLERANCE S: No Known Allergies HEALTH HISTORY: No documented data. OUTPATIENT MEDICATIONS: Home Medications Review Status for Reconciliation: Complete Med Status: Patient Currently Takes Medications Drug Name: atenolol 25 mg oral tablet Instructions: 1 tab(s) orally once a day Drug Name: Azithromycin 5 Day Dose Pack 250 mg oral tablet Instructions: take as directed on package SIGNIFICANT EVENTS: No documented data. REVIEW OF SYSTEMS ENMT Nose: POSITIVE for: congestion and discharge All other systems reviewed and are negative RESULTS/VITAL SIGNS VITAL SIGNS: T PRBP SpO2O2(LPM) %FiO2 Method 04-Aug-2020 16:09:[id number]/ 92 98 PHYSICAL EXAM CONSTITUTIONAL: Well appearing, well nourished, awake, alert, oriented to person, place, time/situation and in no apparent distress. HENMT: Airway patent, ears with clear tympanic membranes bilaterally. Nasal mucosa clear. Mouth with normal mucosa. Throat has no vesicles, no oropharyngeal exudates and uvula is midline. Face with no lymph node enlargement. EYES: pupils are accommodating CARDIOVASCULAR: Normal rate, regular rhythm. RESPIRATORY: Breath sounds clear and equal bilaterally and unlabored. no Rales rhonchi or crackles. MUSCULOSKELETAL: Spine appears normal, range of motion is not limited, no muscle or joint tenderness. NEUROLOGICAL: Alert and oriented, no focal deficits, no motor or sensory deficits. SKIN: Skin normal color for race, warm, dry and intact. No evidence of trauma. PSYCHIATRIC: Alert and oriented to person, place, time/situation. normal mood and affect. No apparent risk to self or others. HEME/LYMPH: No cervical adenopathy. CLINICAL IMPRESSION Diagnosis/Annotation: ED Dx Name:Sinusitis, acute, maxillary Code:J01.00 Disposition: discharged Type: home ATTESTATION Comments/Additional Findings: Patient was given a Z-Endy. Patient was educated on proper use of medication supportive therapies. Patient will follow up with signs and symptoms to be getting worse not better. Patient was okay with this care plan. CRITICAL CARE TIME Is this a critically ill patient: no Electronic Signatures: Mirna Robins (KEYLINER-MATHEMATICS LECTURER) (Signed 04-Aug-2020 16:31) Authored: ED Notes, HPI, PMH, ROS, PE, Results/Vital Signs, Clinical Impression, Attestation, Chart Review, Scores Last Updated: 04-Aug-2020 16:31 by Mirna Robins (KEYLINER-MATHEMATICS LECTURER) [facility] EMERGENCY REPORTon EMERGENCY REPORT [facility] EMERGENCY ROOM REPORT NAME ACCOUNT SEX AGE ADMIT DISCHARGE PT MED. RECORD# NUMBER DATE DATE TYPE PRASAD [id number] M 59 01/17/20 01/17/20 3 MUNIR Reid [id number] ROOM: ER DATE OF : 1960 DICTATING PHYSICIAN: Taryn Cervantes CHIEF COMPLAINT: Nosebleed. HISTORY OF PRESENT ILLNESS: This is a 59-year-old previously healthy male who presents with nosebleeds. He said since Friday he has had numerous nosebleeds out of nowhere. He has never had them before. He said it will bleed very extensively all over the place, and then he will tip his head back and within a few seconds to minutes it will stop on its own, but it is happening with increased frequency. He is not doing anything different, and this has never happened before. He has a history of high blood pressure, and it is definitely a little elevated here, but he said last week he had it checked and it was normal. He has been taking his blood pressure medication. He does not have any headache, blurred vision, double vision, or stroke-like symptoms. He does not have any chronic sinus issues, dry nose, or doing anything different than he normally does at work. He was recently started on a cholesterol medication. He has only taken 4 doses of that. He is not a drinker. He does not have cirrhosis. No known blood clotting disorder or any type of cancer or platelet issues in the past. He denies any chest pain, cough or shortness of breath. PAST MEDICAL HISTORY: High blood pressure. PAST SURGICAL HISTORY: None. MEDICATIONS: See nurse's note. FAMILY HISTORY: Noncontributory. SOCIAL HISTORY: He denies alcohol, tobacco or illicit drug abuse. PHYSICAL EXAMINATION: Blood pressure is elevated. It is also consistent manually at 148/105. Pulse is 100, respiratory rate 18, temperature 98, and oxygen saturation 99% on room air. General: He is awake and alert. GCS is 15. Head is normocephalic, atraumatic. Pupils are equal and reactive to light bilaterally. Mucous membranes are moist. Trachea is midline. Neck is supple. When I look into his nares, the bleeding has subsided. I do not see any focus lesions, polyps or any source of bleeding. There is no posterior pharyngeal bleeding, and he says he does not feel any bleeding right now. There is no dried blood in the throat or the mouth. Trachea is midline. Neck is supple. He is not coughing. No shortness of breath. This is definitely not coming from his lungs. Page 1 of 2 MUNIR PARHAM Emergency Room Report MUNIR PARHAM : 1960 Heart rate and rhythm are regular without murmur, gallop or rub. Lungs are clear to auscultation bilaterally without wheezes, rales or rhonchi. Abdomen is soft. No tenderness, guarding, rebound, or rigidity. EMERGENCY DEPARTMENT COURSE AND TREATMENT: I told him I would like to do a CT to look at his sinuses and check his H&H, platelet count and liver enzymes to make sure there is nothing off there. The bleeding has subsided now. His blood pressure is a little bit elevated, but he said it is not normally that elevated. He does not really want to be here, and he is a little bit nervous. I do not really want to give him anything that would bottom his pressure out, as he has been pretty much taking the same dose and it has been under control. The plan is to sign him out to Dr. Paige. I would recommend if all this is negative to follow up with ENT for further evaluation. Dictated By: Taryn Cervantes DO 01/17/20 19:05 JOB #: [id number] Transcribed By: tessa 01/18/20 09:33 Electronically signed by: E-Sign: TARYN CERVANTES MD 01/28/20 07:38 Page 2 of 2 MUNIR PARHAM Emergency Room Report Normal [facility] EMERGENCY REPORT [facility] EMERGENCY ROOM REPORT NAME ACCOUNT SEX AGE ADMIT DISCHARGE PT MED. RECORD# NUMBER DATE DATE TYPE PRASAD [id number] M 59 01/17/20 01/17/20 3 MUNIR Reid [id number] ROOM: ER DATE OF : 1960 DICTATING PHYSICIAN: Taryn Cervantes ADDENDUM DIAGNOSTIC DATA: The patient's laboratory work came back normal. His hemoglobin and hematocrit are stable. His LFTs were normal. CT of the head was nonacute. EMERGENCY DEPARTMENT COURSE AND TREATMENT: At this time, I told him there are no active signs of bleeding. We cannot find any coagulation disorder or platelet counts that are abnormal or any source of bleeding right now, but I am going to have him follow up with ENT. He could have a polyp up there or something of that nature. He is stable now and in agreement with this. He is going to monitor his blood pressure closely and follow up with Dr. Infante. Return for increasing, worsening or new symptoms. DIAGNOSIS: Epistaxis, resolved. Dictated By: Taryn Cervantes DO 01/18/20 07:36 JOB #: [id number] Transcribed By: tessa 01/18/20 16:48 Electronically signed by: E-Sign: TARYN CERVANTES MD 01/28/20 07:38 Page 1 of 1 MUNIR PARHAM Emergency Room Report Normal [facility] CBC + DIFFon 01-17-2020 Basophils (Bld) [#/Vol] 0.10 x10EE3/UL Normal 0.00 - 0.10 [facility] Comment on above: Performed By: #### 2 [id number] #### [facility],[address] [place] [id number] Basophils/100 WBC (Bld) 0.8 % Normal 0.0 - 2.0 [facility] Comment on above: Performed By: #### 2 [id number] #### [facility],[address] [place] [id number] CBC + DIFF Normal [facility] Comment on above: Result Comment: CBC- COMPLETE BLOOD COUNT Performed By: #### 2 [id number] #### [facility],[address] [place] [id number] Eosinophils (Bld) [#/Vol] 0.40 x10EE3/UL Normal 0.00 - 0.50 [facility] Comment on above: Performed By: #### 2 [id number] #### [facility],[address] [place] [id number] Eosinophils/100 WBC (Bld) 3.5 % Normal 0.0 - 7.0 [facility] Comment on above: Performed By: #### 2 [id number] #### [facility],[address] [place] [id number] Erythrocyte distribution width (RBC) [Ratio] 13.3 % Normal 12.0 - 15.6 [facility] Comment on above: Performed By: #### 2 [id number] #### [facility],[address] [place] [id number] Hematocrit (Bld) [Volume fraction] 44.0 % Normal 40.0 - 52.0 [facility] [facility] Comment on above: Performed By: #### 2 [id number] #### [facility],[address] [place] [address] 69066 Hemoglobin (Bld) [Mass/Vol] 16.1 g/dL Normal 13.0 - 17.5 [facility] Comment on above: Performed By: #### 2 51323 #### [facility],[address] [place] [address] 59260 Lymphocytes (Bld) [#/Vol] 3.40 x10EE3/UL High 0.80 - 2.80 [facility] Comment on above: Performed By: #### 2 27550 #### [facility],[address] [place] [address] 60094 Lymphocytes/100 WBC (Bld) 33.8 % Normal 20.0 - 45.0 [facility] Comment on above: Performed By: #### 2 94900 #### [facility],[address] [place], [place] [id number] MANUAL DIFF N/A Normal [facility] Comment on above: Performed By: #### 2 13393 #### [facility],[address] [place], [place] [id number] MCH (RBC) [Entitic mass] 33 pg Normal 27 - 33 [facility] Comment on above: Performed By: #### 2 97739 #### [facility],[address] [place] [address] MCHC (RBC) [Mass/Vol] 37 X10 3 High 32 - 36 [facility] Comment on above: Performed By: #### 2 36012 #### [facility],[address] [place], [place] [id number] MCV (RBC) [Entitic vol] 89 fL Normal 81 - 98 [facility] Comment on above: Performed By: #### 2 25165 #### [facility],[address] [place], [place] [phone] Monocytes (Bld) [#/Vol] 0.70 x10EE3/UL Normal 0.20 - 1.00 [facility] Comment on above: Performed By: #### 2 10499 #### [facility],[address] [place] [address] 29199 MONOS % 7.3 % Normal 0.0 - 10.0 [facility] Comment on above: Performed By: #### 2 34452 #### [facility],[address] [place] [address] 32322 Morphology Cornelius (Bld) [Interp] N/A Normal [facility] Comment on above: Performed By: #### 2 48371 #### [facility],[address] [place] [address] 93429 Neutrophils (Bld) [#/Vol] 5.50 x10EE3/UL Normal 1.50 - 7.10 [facility] Comment on above: Performed By: #### 2 77502 #### [facility],[address] [place] [address] 44149 Neutrophils/100 WBC (Bld) 54.6 % Normal 46.0 - 76.0 [facility] Comment on above: Performed By: #### 2 01388 #### [facility],[address] [place] [address] 01734 Platelet mean volume (Bld) [Entitic vol] 6.9 fL Normal 6.4 - 10.5 [facility] Comment on above: Result Comment: AUTO MATED DIFFERENTIAL Performed By: #### 2 98573 #### [address] [address] Platelets (Bld) [#/Vol] 303 x10EE3/UL Normal 150 - 450 [facility] Comment on above: Performed By: #### 2 69802 #### [facility],[address] [place] [address] 75102 RBC (Bld) [#/Vol] 4.96 x 10EE6/UL Normal 4.50 - 6.00 [facility] Comment on above: Performed By: #### 2 10534 #### [facility],[address] [place] [address] 81489 WBC (Bld) [#/Vol] 10.1 x 10EE3/UL Normal 4.5 - 10.8 [facility] Comment on above: Performed By: #### 2 09936 #### [facility],[address] [place] [address] 81904 CMP with eGFRon 01-17-2020 Age - Reported 59 years Normal [facility] Comment on above: Performed By: #### 2 92734 #### [facility],[address] [place] [address] 30324 Albumin [Mass/Vol] 4.3 g/dL Normal 3.4 - 4.8 [facility] Comment on above: Performed By: #### 2 11521 #### [facility],[address] [place] [address] 65880 Albumin/Globulin [Mass ratio] 1.7 {ratio} High 0.9 - 1.6 [facility] Comment on above: Performed By: #### 2 19377 #### [facility],[address] [place] [address] 42706 ALK PHOS 85 U/L Normal 38 - 126 [facility] Comment on above: Performed By: #### 2 93036 #### [facility],[address] [place] [address] 07946 ALT/SGPT 18 U/L Normal 10 - 40 [facility] Comment on above: Performed By: #### 2 71769 #### [facility],[address] [place] [address] 82740 Anion gap [Moles/Vol] 11 mmol/L Normal 10 - 20 [facility] Comment on above: Performed By: #### 2 36314 #### [facility],[address] [place] [address] 80180 AST/SGOT 14 U/L Normal 13 - 39 [facility] Comment on above: Performed By: #### 2 68846 #### [facility],[address] [place] [address] 43641 B/C RATIO 9 ratio Normal 0 - 30 [facility] Comment on above: Performed By: #### 2 46876 #### [facility],[address] [place] [address] 66510 Bilirubin [Mass/Vol] 0.4 mg/dL Normal 0.0 - 1.5 [facility] Comment on above: Performed By: #### 2 32028 #### [facility],[address] [place] [address] 02908 Calcium [Mass/Vol] 9.2 mg/dL Normal 8.6 - 10.2 [facility] Comment on above: Performed By: #### 2 86696 #### [facility],[address] [place] [address] 09891 Chloride [Moles/Vol] 103 mmol/L Normal 98 - 107 [facility] Comment on above: Performed By: #### 2 75913 #### [facility],[address] [place] [address] 19809 CO2 [Moles/Vol] 26.5 mmol/L Normal 21.0 - 31.0 [facility] Comment on above: Performed By: #### 2 42426 #### [facility],[address] [place] [address] 73554 Creatinine [Mass/Vol] 1.1 mg/dL Normal 0.7 - 1.3 [facility] Comment on above: Performed By: #### 2 24735 #### [facility],[address] [place] [address] 27435 GFR/1.73 sq M predicted among non-blacks MDRD (S/P/Bld) [Vol rate/Area] mL/min/{1.73_m2} Normal 60 - 999 [facility] Comment on above: Result Comment: ACCO RDING TO THE NATIONAL KIDNEY DISEASE EDUCATION PROGRAM(NKDE), A NORMAL eGFR IS A VALUE GREATER THAN OR EQUAL TO 60 ML/MIN/1.73 SQ METERS. CHRONIC KIDNEY DISEASE: <60mL/MIN/1.73 SQ METERS KIDNEY FAILURE: <15mL/MIN/1.73 SQ METERS THIS TEST SHOULD ONLY BE USED FOR PATIENTS 18 YEARS OF AGE AND OLDER. Performed By: #### 2 70425 #### [facility],[address] [place] [address] 81992 GFR/1.73 sq M predicted among non-blacks MDRD (S/P/Bld) [Vol rate/Area] Normal [facility] Comment on above: Result Comment: COMP REHENSIVE METABOLIC PANEL Performed By: #### 2 25897 #### [facility],[address] [place] [address] 22152 Globulin (S) [Mass/Vol] 2.5 g/dL Normal 1.5 - 3.8 [facility] Comment on above: Performed By: #### 2 77761 #### [facility],[address] [place] [address] 13917 Glucose [Mass/Vol] 134 mg/dL High 74 - 106 [facility] Comment on above: Performed By: #### 2 82734 #### [facility],[address] [place] [address] 91595 Potassium [Moles/Vol] 3.6 mmol/L Normal 3.5 - 5.1 [facility] Comment on above: Performed By: #### 2 05381 #### [facility],[address] [place] [address] 07671 Protein [Mass/Vol] 6.8 g/dL Normal 6.4 - 8.3 [facility] Comment on above: Performed By: #### 2 68739 #### [facility],[address] [place] [address] 15200 Sodium [Moles/Vol] 137 mmol/L Normal 136 - 145 [facility] Comment on above: Performed By: #### 2 67591 #### [facility],[address] [place] [address] 07413 Urea nitrogen [Mass/Vol] 10 mg/dL Normal 6 - 20 [facility] Comment on above: Performed By: #### 2 41539 #### [facility],[address] [place] [address] BRAIN W/O CONTRAST 12-23 CT BRAIN W/O CONTRAST [place] [address] Patient: MUNIR PARHAM Phone#: : 1960 Age: 59 Gender: M Pt. Type: ER Account: [id number] Location: [facility] Ordering: DR. TARYN CERVANTES Exam Date: 01/17/2020/19:22 Family Phys: Charge Code: [id number] Physician: [place] Order #: [id number] DLP Dose#: [id number] PROCEDURE: CT BRAIN WITHOUT CONTRAST COMPARISON: [facility], CT, BRAIN W/O CON, 07/07/2012, 11:21. INDICATIONS: Headache. TECHNIQUE: CT images were obtained without contrast material. All CT scans at this facility use dose modulation, iterative reconstruction, and/or weight based dosing when appropriate to reduce radiation dose to as low as reasonably achievable. IV CONTRAST: No IV contrast used,0ml TOTAL DOSE: 52.30 CTDIvol(mGy) FINDINGS: CEREBRUM: Age-appropriate atrophy is present, without visible acute hemorrhage or lesion. CEREBELLUM: No edema, hemorrhage, mass, acute infarction, or inappropriate atrophy. BRAINSTEM: No edema, hemorrhage, mass, acute infarction, or inappropriate atrophy. CSF SPACES: Ventricles, cisterns, and sulci are appropriate for age. No hydrocephalus, subarachnoid hemorrhage, or mass. SKULL: No mass or other significant visible lesion. SINUSES: Limited views demonstrate no significant mucosal thickening or fluid. There is nasal septal deviation to the right. There is probable remote fracture of the septum. ORBITS: Limited views are unremarkable. OTHER: Negative. CONCLUSION: No acute disease. Dictated by: Louise Cornejo MD on 01/18/2020 at 8:20 Approved by: Louise Cornejo MD on 01/18/2020 at 8:22 Normal [facility] Vital Signs Date Time Vital Sign Value Performing Clinician Facility 01-24-2024 13:21-0400 Body mass index (BMI) [Ratio] 29.45 kg/m2 John Rosario APRN.CNP Work Phone: [facility] 01-24-2024 13:21-0400 Body temperature 96.91 [degF] John Rosario APRN.CNP Work Phone: [facility] 01-24-2024 13:21-0400 Body weight 98.5 kg John Rosario APRN.CNP Work Phone: [facility] 01-24-2024 13:21-0400 Diastolic blood pressure 84 mm[Hg] John Rosario APRN.CNP Work Phone: [facility] 01-24-2024 13:21-0400 Heart rate 98 /min John Tamayovikash KEYLINER.MATHEMATICS LECTURER Work Phone: [facility] 01-24-2024 13:21-0400 Respiratory rate 18 /min John Tamayovikash KEYLINER.MATHEMATICS LECTURER Work Phone: [facility] 01-24-2024 13:21-0400 SaO2% (BldA) [Mass fraction] 96 % John Tamayovikash KEYLINER.MATHEMATICS LECTURER Work Phone: [facility] 01-24-2024 13:21-0400 Systolic blood pressure 130 mm[Hg] John Tamayovikash KEYLINER.MATHEMATICS LECTURER Work Phone: [facility] 08-04-2020 18:09-0400 Body height 182.8 cm Krista Azul Other Phone: [facility] 08-04-2020 18:09-0400 Body temperature 97.7 [degF] Krista Azul Other Phone: [facility] 08-04-2020 18:09-0400 Diastolic blood pressure 92 mm[Hg] Krista Azul Other Phone: [facility] 08-04-2020 18:09-0400 Heart rate 85 /min Krista Azul Other Phone: [facility] 08-04-2020 18:09-0400 Respiratory rate 16 /min Krista Azul Other Phone: [facility] 08-04-2020 18:09-0400 SaO2% (BldA) [Mass fraction] 98 % Krista Azul Other Phone: [facility] 08-04-2020 18:09-0400 Systolic blood pressure 138 mm[Hg] Krista Azul Other Phone: [facility] Encounters Encounter Date Encounter Type Care Provider Facility Start: 08-30-2024 ambulatory [facility] Start: 08-27-2024 ambulatory [facility] Fac[facility] ty:[facility] Start: 08-23-2024 ambulatory [facility] Facili ty:[facility] Start: 01-24-2024 End: 01-24-2024 Emergency department patient visit [facility] Facility:[facility] Start: 01-24-2024 End: 01-24-2024 ambulatory KRISTA AZUL Facility:[facility] Start: 01-24-2024 End: 01-24-2024 Office outpatient visit 15 minutes John Rosario KEYLINER.MATHEMATICS LECTURER Work Phone: [facility] Comment on above: Foreign body of righ t eye, initial encounter (Primary Dx) Start: 08-04-2020 End: 08-04-2020 Emergency department patient visit Mirna Shimon [facility] Start: 01-17-2020 End: 01-17-2020 Emergency department patient visit TARYN Flynn [facility] Procedures Date Procedure Procedure Detail Performing Clinician Start: 10-16-2015 Colonoscopy John roy KEYLINER.MATHEMATICS LECTURER Work Phone: Plan of Treatment Date Care Activity Detail Author Start: 2036 RSV Vaccine (1 - 1-d ose 75+ series) RSV Vaccine (1 - 1-dose 75+ series) [facility] Start: 11-23-2023 Covid-19 Vaccine ( season) Covid-19 Vaccine ( season) [facility] Start: 11-23-2023 Influenza vaccination Influenza Vacc ine (#1) [facility] Start: 05-13-2019 Diabetes Screening Diabetes Screenin g [facility] Start: 10-15-2018 Screening for malign ant neoplasm of colon [facility] Start: 2016 Prostate specific an tigen measurement Prostate Cancer Screening Discussion [facility] Start: 11-22-2011 Shingrix Vaccine (1 of 2) Paulino grix Vaccine (1 of 2) [facility] Start: 2006 Screening for malign ant neoplasm of colon [facility] Start: 1996 Lipid panel Lipid Screening [facility] Start: 1980 Urine microalbumin profile DTa P,Tdap,Td Vaccine (1 - Tdap) [facility] Start: 11-22-1979 Anxiety Screening Anxiety Screening [facility] Start: 11-22-1979 Depression Screening Depression Scre dorothy [facility] Start: 11-22-1979 Hepatitis C screening Hepatitis C Sc michela [facility] Start: 11-22-1979 HIV screening HIV Screening [facility] Immunizations Immunization Date Immunization Notes Care Provider Fa yuli 05-03-2022 influenza virus vaccine, unspecified formulation John Rosario KEYLINER.MATHEMATICS LECTURER Work Phone: [facility] Payers Date Payer Category Payer Unknown [id number] 2024 Self-pay 2023 Unknown [id number] 2021 Unknown 2021 Unknown [id number] 1960 Unknown [id number] [id number] Private Health Insurance [id number] Unknown [id number] Unknown [id number] [id number] [id number] Unknown [id number] 2.16.8 [id number] Unknown [id number] 2.16.8 [id number] Unknown [id number] 2.16.8 [id number] Social History Date Type Detail Facility [facility] Tobacco smoking consumption unknown [facility] Start: 10-11-2015 Tobacco smoking stat us NHIS Never smoked tobacco [facility] Start: 10-11-2015 Tobacco use and exposure User of smokeless tobacco [facility] History of tobacco use Chews Tobacco [facility] Start: 01-24-2024 Alcoholic beverage intake Current drinker of alcohol (finding) [facility] Start: 02-27-2020 End: 01-24-2024 History of Social function [facility] Start: 02-27-2020 End: 01-24-2024 Tobacco use panel [facility] National Score (1-100), lower number is lower risk Not on file [facility] Start: 1960 Sex assigned at Not on file C [facility] Medical Equipment Procedure Code Equipment Code Equipment Origin al Text Equipment Identifier Dates Mesh 3dmax Large Polypropylene 6x4in Surgical Nonabsorbable Patch Preform - [id number] Start: 05-15-[address] Sepra Sorbaflex 2.5in Medium [place] Polypropylene - [id number] Start: 05-15-2016 Progress note 01-24-2024 Note Date & Type Note Facility 01-24-2024 Note HNO ID: [id number] Author: JOHN ROSARIO APRN.MATHEMATICS LECTURER Service: ? Author Type: Nurse Practitioner Type: Progress Notes Filed: 01/24/2024 13:43 Note Text: Subjective HPI Nontoxic-appearing male presents urgent care chief complaint right eye pain. Duration of symptoms 1 day. Associate symptoms right eye pain light sensitivity. States pain is worsening. Rates pain 9 out of 10. States vision is slightly blurry. Was blowing the leaves does not know if he has something in his eye. This was on . At that time he did not notice any foreign body sensation. Also does work as a janitorial maintenance worker. Does not know if he got a piece of metal in the thigh. OTC medications none. does not wear contacts. No flashes light or floaters. Past medical history prescription medications allergies reviewed. .Patient presents with: Eye Problem: light sensitivity and pain in right eye x 1 day, was blowing leaves on PAST MEDICAL HISTORY Diagnosis Date Allergic rhinitis DDD (degenerative disc disease), lumbar Deviated septum Hypertension Inguinal hernia Kidney stones Mixed hyperlipidemia Nasal polyp TIA (transient ischemic attack) 2011 Tobacco use Umbilical hernia PAST SURGICAL HISTORY Procedure Laterality Date COLONOSCOPY FLX DX W/COLLJ SPEC WHEN PFRMD 10/16/2015 Colonoscopy/next with mac LAP UMBILICAL HERNIA REPAIR REMOVAL NASAL POLYP UNILATERAL MULTIPLE REPAIR INGUINAL HERNIA RHINOPLASTY 1989' polpectomy RHINOPLASTY deviated septum repair ALLERGIES Patient has no known allergies. MEDICATIONS atenolol (TENORMIN) 25 mg tablet Take 25 mg by mouth once daily. aspirin, enteric coated (ASPIRIN, ENTERIC COATED) 81 mg EC tablet Take 81 mg by mouth once daily. Cetirizine 10 mg cap Take 1 tablet by mouth as needed. rosuvastatin (CRESTOR) 5 mg tablet Take 5 mg by mouth once daily. (Patient not taking: Reported on 01/24/2024) benzonatate (TESSALON PERLE) 100 mg capsule Take 2 capsules by mouth three times daily as needed. (Patient not taking: Reported on 01/24/2024) HYDROcodone-acetaminophen (NORCO) 5-325 mg per tablet Take 1 tablet by mouth every 4 hours as needed. OTC NUTRITIONAL SUPPLEMENT LIMU- seaweed nutrional supplement (Patient not taking: Reported on 01/24/2024) FAMILY HISTORY Problem Relation Age of Onset Breast Cancer Mother Cancer Father lung Lung Cancer Brother Social History Tobacco Use Smoking status: Never Smokeless tobacco: Current Types: Chew Substance Use Topics Alcohol use: Yes Comment: rarely Drug use: No BP 130/84 Pulse 98 Temp 36.1 ?C (96.9 ?F) Resp 18 Wt 98.5 kg (217 lb 2.5 oz) SpO2 96% BMI 29.45 kg/m? Review of Systems Constitutional: Negative for chills, fever and malaise/fatigue. Eyes: Positive for blurred vision, photophobia, pain, discharge and redness. Negative for double vision. Musculoskeletal: Negative for back pain, falls, joint pain, myalgias and neck pain. Neurological: Negative for dizziness, loss of consciousness, weakness and headaches. Objective Physical Exam Constitutional: General: He is not in acute distress. Appearance: He is not toxic-appearing. HENT: Head: Normocephalic. Nose: Nose normal. Eyes: General: Lids are normal. Right eye: Foreign body and discharge present. No hordeolum. Conjunctiva/sclera: Right eye: Right conjunctiva is injected. Pupils: Pupils are equal, round, and reactive to light. Comments: Multiple corneal abrasions noted. Foreign body noted 2 o'clock position. Cardiovascular: Rate and Rhythm: Normal rate. Pulmonary: Effort: Pulmonary effort is normal. No respiratory distress. Musculoskeletal: Cervical back: Normal range of motion. Skin: General: Skin is warm and dry. Neurological: General: No focal deficit present. Mental Status: He is alert. ASSESSMENT/PLAN: 1. Foreign body of right eye, initial encounter - ICD9: 930.9, E914, ICD10: T15.91XA Diagnosis foreign body. Unable to remove. Concern for possible metal. Referred to ED. John Rosario APRN.LUBA [facility] History of Present illness Narrative 01-24-2024 John Rosario APRN.LUBA - 01/24/2024 1:38 PM EDT Note Date & Type Note Facility 01-24-2024 History of Presen t illness Narrative Images from the original note were not included. Subjective HPI Nontoxic-appearing male presents urgent care chief complaint right eye pain. Duration of symptoms 1 day. Associate symptoms right eye pain light sensitivity. States pain is worsening. Rates pain 9 out of 10. States vision is slightly blurry. Was blowing the leaves does not know if he has something in his eye. This was on . At that time he did not notice any foreign body sensation. Also does work as a janitorial maintenance worker. Does not know if he got a piece of metal in the thigh. OTC medications none. does not wear contacts. No flashes light or floaters. Past medical history prescription medications allergies reviewed. .Patient presents with: Eye Problem: light sensitivity and pain in right eye x 1 day, was blowing leaves on PAST MEDICAL HISTORY Diagnosis Date Allergic rhinitis DDD (degenerative disc disease), lumbar Deviated septum Hypertension Inguinal hernia Kidney stones Mixed hyperlipidemia Nasal polyp TIA (transient ischemic attack) 2011 Tobacco use Umbilical hernia PAST SURGICAL HISTORY Procedure Laterality Date COLONOSCOPY FLX DX W/COLLJ SPEC WHEN PFRMD 10/16/2015 Colonoscopy/next with mac LAP UMBILICAL HERNIA REPAIR REMOVAL NASAL POLYP UNILATERAL MULTIPLE REPAIR INGUINAL HERNIA RHINOPLASTY polpectomy RHINOPLASTY deviated septum repair ALLERGIES Patient has no known allergies. MEDICATIONS atenolol (TENORMIN) 25 mg tablet Take 25 mg by mouth once daily. aspirin, enteric coated (ASPIRIN, ENTERIC COATED) 81 mg EC tablet Take 81 mg by mouth once daily. Cetirizine 10 mg cap Take 1 tablet by mouth as needed. rosuvastatin (CRESTOR) 5 mg tablet Take 5 mg by mouth once daily. (Patient not taking: Reported on 01/24/2024) benzonatate (TESSALON PERLE) 100 mg capsule Take 2 capsules by mouth three times daily as needed. (Patient not taking: Reported on 01/24/2024) HYDROcodone-acetaminophen (NORCO) 5-325 mg per tablet Take 1 tablet by mouth every 4 hours as needed. OTC NUTRITIONAL SUPPLEMENT LIMU- seaweed nutrional supplement (Patient not taking: Reported on 01/24/2024) FAMILY HISTORY Problem Relation Age of Onset Breast Cancer Mother Cancer Father lung Lung Cancer Brother Social History Tobacco Use Smoking status: Never Smokeless tobacco: Current Types: Chew Substance Use Topics Alcohol use: Yes Comment: rarely Drug use: No BP 130/84 Pulse 98 Temp 36.1 C (96.9 F) Resp 18 Wt 98.5 kg (217 lb 2.5 oz) SpO2 96% BMI 29.45 kg/m Review of Systems Constitutional: Negative for chills, fever and malaise/fatigue. Eyes: Positive for blurred vision, photophobia, pain, discharge and redness. Negative for double vision. Musculoskeletal: Negative for back pain, falls, joint pain, myalgias and neck pain. Neurological: Negative for dizziness, loss of consciousness, weakness and headaches. Objective Physical Exam Constitutional: General: He is not in acute distress. Appearance: He is not toxic-appearing. HENT: Head: Normocephalic. Nose: Nose normal. Eyes: General: Lids are normal. Right eye: Foreign body and discharge present. No hordeolum. Conjunctiva/sclera: Right eye: Right conjunctiva is injected. Pupils: Pupils are equal, round, and reactive to light. Comments: Multiple corneal abrasions noted. Foreign body noted 2 o'clock position. Cardiovascular: Rate and Rhythm: Normal rate. Pulmonary: Effort: Pulmonary effort is normal. No respiratory distress. Musculoskeletal: Cervical back: Normal range of motion. Skin: General: Skin is warm and dry. Neurological: General: No focal deficit present. Mental Status: He is alert. ASSESSMENT/PLAN: 1. Foreign body of right eye, initial encounter - ICD9: 930.9, E914, ICD10: T15.91XA Diagnosis foreign body. Unable to remove. Concern for possible metal. Referred to ED. John Rosario APRN.MATHEMATICS LECTURER documented in this encounter [facility] Evaluation note Note Date & Type Note Facility Evaluation note Diagnosis Foreign body of right eye, initial encounter- Primary documented in this encounter [facility] Summary Purpose Family History No Family History Records FoundNo Family History Records FoundNo Family History Records FoundNo Family History Records Found Advance Directives No Advanced Directives Records FoundNo Advanced Directives Records FoundNo Advanced Directives Records FoundNo Advanced Directives Records Found Additional Source Comments (unrecognized sect ion and content) No Status Records FoundNo Status Records FoundNo Status Records FoundNo Status Records Found INFORMATION SOURCE (unrecogn ized section and content) DATE CREATED AUTHOR 01/28/2020 [facility] DATE CREATED AUTHOR AUTHOR'S ORGANIZ ATION 08/16/2020 [facility] DATE CREATED AUTHOR AUTHOR'S ORGANIZ ATION 01/26/2024 [facility] DATE CREATED AUTHOR AUTHOR'S ORGANIZ ATION 08/26/2024 [facility] <item> Privacy Markings (unrecogniz ed section and content) Section Author: Rebecca Collins PROHIBITION ON REDISCLOSURE OF CONFIDENTIAL INFORMATION This notice accompanies a disclosure of information concerning a client made to you with the consent of such client. Source Comments (unrecognize d section and content) In the event this informatio n is protected by the Federal Confidentiality of Alcohol and Drug Abuse Patient Records regulations: The Federal rules restrict any use of the information to criminally investigate or prosecute any alcohol or drug abuse patient.[facility] Reason for Visit (unrecogniz ed section and content) Reason Comments Eye Problem light sensitivity an d pain in right eye x 1 day, was blowing leaves on thurs Care Teams (unrecognized sec tion and content) Rheumatology Nurse Relationship Specialty Start Date End Date Krista Azul MD PCP - General Family Medicine 10/16/15 FOR RECORDS PERTAINING TO PATIENTS WHO ARE OR HAVE BEEN ENROLLED IN A CHEMICAL DEPENDENCY/SUBSTANCEABUSE PROGRAM, SOME INFORMATION MAY BE OMITTED. This clinical summary was aggregated from multiple sources. Caution should be exercised in using it in the provision of clinical care. This summary normalizes information from multiple sources, and as a consequence, information in this document may materially change the coding, format and clinical context of patient data. In addition, data may be omitted in some cases. CLINICAL DECISIONS SHOULD BE BASED ON THE PRIMARY CLINICAL RECORDS. [employer] provides no warranty or guarantee of the accuracy or completeness of information in this document.
[2024-08-27] MEDS: Lactated Ringers 1,000 ML 15 ML IV (07:11)
--- NOTE | 2024-08-27 07:41 | PRE.ANES_ITS ---
ASA Classification* ASA Classification ASA Classification: 2 Assessment & Plan Anesthesia* Anesthesia Assessment Anesthesia Assessment: Discussed sedation and/or anesthesia options, risks, benefits, and alternatives with patient/parents/legal guardian/POA. Questions invited. The patient/parents/legal guardian/POA seems to understand and agrees to proceed with anesthesia plan. Reviewed the physical assessment, medical history, allergy history and patient home medications list prior to surgery/procedure/anesthetic and documented any changes. Performed airway and anesthesia risk assessments. Anesthesia Type Anesthesia Type: MAC Anesthesia Focused Assessment* Temperature: 97 F Pulse Rate: 80 Blood Pressure: 140/95 Respiratory Rate: 16 Pulse Ox: 97 Airway Assessment Mouth opens: >3 cm Mallampati Score: II Focused Labs Anesthesia Preop lab: CBC WBC 4.7 K/mm3 (4.4-11.0) 08/10/23 11:30 08/10/23 RBC 5.23 M/mm3 (4.6-6.2) 08/10/23 11:30 08/10/23 Hgb 15.6 g/dL (13.0-16.5) 08/10/23 11:30 08/10/23 Hct 46.1 % (40-54) 08/10/23 11:30 08/10/23 Plt Count 180 K/mm3 (150-450) 08/10/23 11:30 08/10/23 CHEMISTRY Potassium 3.8 mmol/L (3.5-5.1) 08/10/23 11:30 08/10/23 Sodium 136 mmol/L (136-145) 08/10/23 11:30 08/10/23 BUN 11 mg/dL (7-18) 08/10/23 11:30 08/10/23 Creatinine 1.01 mg/dL (0.70-1.30) 08/10/23 11:30 08/10/23 Glucose 105 mg/dL (74-106) 08/10/23 11:30 08/10/23 COAG Pre-Assessment Diagnosis/Proposed Procedure Planned Operative Procedure(s): COLONOSCOPY-OA Anesthesia History 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 When Was Last Pacemaker Check QUESTION #4 FULL TEXT: You/Your Family Experience fever (hyperthermia) with Anesthesia Last Oral Intake Last Oral intake: Last Oral Intake NPO since 06:00 08/27/24 07:11 Meds taken in AM with sips of Yes 08/27/24 07:11 water? Meds patient instructed to atenolol 08/27/24 07:11 take am of surgery PONV PONV - emergency communications operator: PONV - emergency communications operator Female No 08/23/24 12:21 HX of Motion Sickness No 08/23/24 12:21 HX of N/V After Surgery No 08/23/24 12:21 Non-Smoker Yes 08/23/24 12:21 Duration of Surgery greater No 08/23/24 12:21 than 60 minutes Number of Risk Factors 1 08/23/24 12:21 PONV Score Low Risk 08/23/24 12:21 Height & Weight Height & Weight: Anesthesia: Height & Weight Height 6 ft 08/27/24 07:11 Weight: 94.3 kg 08/27/24 07:11 Body Mass Index (BMI) 28.2 08/27/24 07:11 Respiratory Assessment Respiratory Assessment - emergency communications operator: Respiratory Tract Infection Hx - emergency communications operator Hx Respiratory Tract Infection No 08/23/24 12:21 STOP Sleep Apnea STOP Sleep Apnea - emergency communications operator: STOP Sleep Apnea - emergency communications operator Hx Hypertension Yes: controlled with med 08/23/24 12:21 Hx Sleep Apnea No 08/23/24 12:21 CPAP BIPAP Do you snore loudly (louder No 08/23/24 12:21 than talking or can be heard Do you often feel tired/ No 08/23/24 12:21 fatigued/ sleepy during daytime? Has anyone observed you stop No 08/23/24 12:21 breathing during sleep? STOP Results Negative 08/23/24 12:21 QUESTION #5 FULL TEXT : Do you snore loudly (louder than talking or can be heard through closed doors)? Tobacco Use History Tobacco Use History - emergency communications operator: Tobacco Use History - emergency communications operator Tobacco Use Smoking Status Current every day smoker 08/23/24 12:21 Hx Tobacco Use Yes 08/23/24 12:21 Years Smoking Packs Smoked per Day Smoking Cessation Date was within the last 15 years Hx Smoking Cessation Date Hx Smoking Cessation Counseling Hematologic Medial History Hematologic Hx - emergency communications operator: Hematologic Medical Hx - best second jobs Hx of Blood Transfusion No 08/23/24 12:21 Hx of Transfusion in last 3 No 08/23/24 12:21 Months Date of Last Transfusion (if within last 3 months) Ever experience any problems No 08/23/24 12:21 with transfusion(s)? Specify any problems Hx of Preganancy in last 3 N/A 08/23/24 12:21 Months Nurse Filling Out Transfusion VCHRISTIN 08/23/24 12:21 & Questions: Date: 08/23/24 08/23/24 12:21 Time: 12:23 08/23/24 12:21 Patient unable to answer at this time (ie. confused, unrespo /Reproduction History /Reproductive History - emergency communications operator: /Reproductive Hx- emergency communications operator Hx Now No 08/23/24 12:21 Gestational Age (in weeks): EDC: Hx Hx Para Hx Section SAB No 08/23/24 12:21 Active Medications Active Medications: Current Medications Generic Name Dose Route Start Last Admin Trade Name Freq PRN Reason Stop Dose Admin Lactated Ringer's 1,000 mls @ 15 mls/hr 08/27/24 07:00 08/27/24 07:11 IV 15 mls/hr .Q48H BEENA Administration PFSH Medical History Wears partial dentures Wears glasses Kidney stone Arthritis High cholesterol Back pain Injury of back TIA (transient ischemic attack) Chewing tobacco dependence CPAP (continuous positive airway pressure) dependence Sleep apnea Leg cramps History of edema History of echocardiogram History of stress test Colon cancer screening Benign essential HTN Home Medications ?Medication ?Instructions ?Recorded ?Last Taken ?Type atenolol 25 mg tablet 25 mg PO DAILY 02/03/2009/15 History cetirizine 10 mg capsule 10 mg PO DAILY 02/03/20 Unkn own History rosuvastatin 10 mg tablet 5 mg PO DAILY 08/23/24 Unkno wn History Allergy/AdvReac Type Severity Reaction Status Date / Time No Known Allergies Allergy Verified 08/27/24 07:08 Surgical History Hx of colonoscopy H/O left inguinal hernia repair History of tonsillectomy Social History Smoking Status: Current every day smoker tobacco type: smokeless tobacco Review of Systems (Anesthesia) ROS Narrative System reviewed and no additional complaints, except as documented.
--- NOTE | 2024-08-27 08:12 | PCM.HP.STD ---
HPI - General General Date of Admission: 08/27/24 Date of Service: 08/27/24 Chief Complaint: colonoscopy HPI Narrative MUNIR PARHAM, is a 63 M who presents screening colonoscopy. history of polyps no symptoms [facility] Medical History Wears partial dentures Wears glasses Kidney stone Arthritis High cholesterol Back pain Injury of back TIA (transient ischemic attack) Chewing tobacco dependence CPAP (continuous positive airway pressure) dependence Sleep apnea Leg cramps History of edema History of echocardiogram History of stress test Colon cancer screening Benign essential HTN Home Medications ?Medication ?Instructions ?Recorded ?Last Taken ?Type atenolol 25 mg tablet 25 mg PO DAILY 02/03/20 08/27/24 History cetirizine 10 mg capsule 10 mg PO DAILY 02/03/20 Unknown History rosuvastatin 10 mg tablet 5 mg PO DAILY 08/23/24 Unknown History Allergy/AdvReac Type Severity Reaction Status Date / Time No Known Allergies Allergy Verified 08/27/24 07:08 Surgical History Hx of colonoscopy H/O left inguinal hernia repair History of tonsillectomy Social History Smoking Status: Current every day smoker tobacco type: smokeless tobacco Vital Signs Vital Signs Vital Signs: 08/27/24 07:11 08/27/24 07:11 08/27/24 07:41 Temperature 97 F L 97 F L Temperature Source Temporal Pulse Rate 80 80 Respiratory Rate 16 16 Respiratory Pattern Normal Blood Pressure 140/95 H 140/95 H Blood Pressure Mean 110 Blood Pressure Source Monitor Blood Pressure Position Semi-Fowlers Blood Pressure Location Right Arm Pulse Ox 97 97 Oxygen Delivery Method Room Air Weight Weight: 207 lb 14.334 oz Body Mass Index (BMI) 28.2 Physical Exam Const alert, oriented x3 and no apparent distress Assessment & Plan Assessment/Plan (1) Personal history of colonic polyps: PLAN: Plan colonoscopy today
--- NOTE | 2024-08-27 08:52 | PCM.POST.ANE ---
Anesthesia: Postop Eval I Current Vital Signs Temperature: 97.5 F Pulse Rate: 63 Blood Pressure: 119/85 Respiratory Rate: 16 Pulse Ox: 97 Oxygen Delivery Method: Room Air Assessment Airway patent: No Spontaneous unlabored respirations: No Mental status: Awake and Calm nausea: No Vomiting: No Anesthesia Complication: No Fluid Hydration Crystalloid volume administer (ml): 500 Total IV fluid infused: 500 Progress Note Anesthesia document: Postop Eval 1 completed: No
--- NOTE | 2024-08-27 08:58 | OP.CCLET_ITS ---
08/27/2024 Annamarie Pulido Re : Colonoscopy procedure for Zac Bui This procedure was performed on Tuesday, August 27, 2024. My impressions and recommendations are as follows: Impressions : - The entire examined colon is normal on direct and retroflexion views. - No specimens collected. Recommendations : - Discharge patient to home (ambulatory). - High fiber diet indefinitely. - Await pathology results. - Repeat colonoscopy in 5 years for surveillance. - Continue present medications. My findings are described in the full procedure note, which is enclosed. If I can be of further assistance, please feel free to contact me at . Sincerely, Ran Hernandez MD 08/27/2024 8:57:54 AM This report has been signed electronically.
--- NOTE | 2024-08-27 08:58 | OP.COLON_ITS ---
Patient Name: Zac Cotter Procedure Date: 08/27/2024 7:57 AM Date of : 1960 Age: 63 Procedure: Colonoscopy Indications: High risk colon cancer surveillance: Personal history of colonic polyps Providers: Ran Hernandez MD Referring MD: Annamarie Pulido Medicines: Monitored Anesthesia Care Patient Profile: Refer to note in patient chart for documentation of history and physical. Last Colonoscopy: more than 10 years ago. Complications: No immediate complications. Estimated blood loss: None. Procedure: Pre-Anesthesia Assessment: - Prior to the procedure, a History and Physical was performed, and patient medications and allergies were reviewed. The patient's tolerance of previous anesthesia was also reviewed. The risks and benefits of the procedure and the sedation options and risks were discussed with the patient. All questions were answered, and informed consent was obtained. Prior Anticoagulants: The patient has taken no anticoagulant or antiplatelet agents. ASA Grade Assessment: II - A patient with mild systemic disease. After reviewing the risks and benefits, the patient was deemed in satisfactory condition to undergo the procedure. After I obtained informed consent, the scope was passed under direct vision. Throughout the procedure, the patient's blood pressure, pulse, and oxygen saturations were monitored continuously. The adult colonoscope was introduced through the anus and advanced to the cecum, identified by appendiceal orifice and ileocecal valve. The colonoscopy was performed without difficulty. The patient tolerated the procedure well. The quality of the bowel preparation was adequate. The ileocecal valve, appendiceal orifice, and rectum were photographed. The entire colon was well visualized. The colonoscopy was performed without difficulty. The patient tolerated the procedure well. The quality of the bowel preparation was adequate. Moderate Sedation: See the other procedure note for documentation of moderate sedation with intraservice time. Scope In: 8:27:11 AM Scope Withdrawal Time 0 hours 11 minutes 1 second Scope Out: 8:42:46 AM Total Procedure Duration Time 0 hours 15 minutes 35 seconds Findings: The perianal and digital rectal examinations were normal. The entire examined colon appeared normal on direct and retroflexion views. Impression: - The entire examined colon is normal on direct and retroflexion views. - No specimens collected. Recommendation: - Discharge patient to home (ambulatory). - High fiber diet indefinitely. - Await pathology results. - Repeat colonoscopy in 5 years for surveillance. - Continue present medications. Procedure Code(s): --- Professional --- 75200, Colonoscopy, flexible; diagnostic, including collection of specimen(s) by brushing or washing, when performed (separate procedure) Diagnosis Code(s): --- Professional --- Z86.010, Personal history of colonic polyps CPT copyright 2021 [employer] [place] [employer]. All rights reserved. The codes documented in this report are preliminary and upon front office developer review may be revised to meet current compliance requirements. Ran Hernandez MD 08/27/2024 8:57:54 AM This report has been signed electronically. Number of Addenda: 0 Note Initiated On: 08/27/2024 7:57 AM
--- NOTE | 2024-08-27 11:02 | POSTOPAN2_ITS ---
Anesthesia Postop Eval I Sum Postop Eval Completion status Anesthesia document: Postop Eval 1 completed: No Anesthesia Postop Eval I Summary Anesthesia Postop Eval I Summary: Anesthesia Postop Eval I: Assessment Summary Airway patent No 08/27/24 08:52 [email or web address] Spontaneous unlabored No 08/27/24 08:52 [email or web address] respirations Mental status Awake,Calm 08/27/24 08:52 [email or web address] nausea No 08/27/24 08:52 RNP.SOBR Vomiting No 08/27/24 08:52 [email or web address] Anesthesia Postop Eval I: Fluid Summary Crystalloid volume administer 500 08/27/24 08:52 [email or web address] (ml) Colloids volume administered ( ml) Blood Product volume administered (ml) Total IV fluid infused 500 08/27/24 08:52 [email or web address] Anesthesia Postop Eval I: Summary Notes Anesthesia Complication No 08/27/24 08:52 [email or web address] Anesthesia Complication Comment: Post-operative progress note Anesthesia: Postop Eval II Evaluation Mental status: Awake Pain Level: 0 nausea: No Vomiting: No
--- NOTE | 2024-08-27 11:02 | PCM.POSTANE2 ---
Anesthesia Postop Eval I Sum Postop Eval Completion status Anesthesia document: Postop Eval 1 completed: No Anesthesia Postop Eval I Summary Anesthesia Postop Eval I Summary: Anesthesia Postop Eval I: Assessment Summary Airway patent No 08/27/24 08:52 FARM EQUIPMENT ENGINE [email or web address] Spontaneous unlabored No 08/27/24 08:52 FARM EQUIPMENT ENGINE MECHANIC.SOBR respirations Mental status Awake,Calm 08/27/24 08:52 FARM EQUIPMENT ENGINE MECHANIC.SOBR nausea No 08/27/24 08:52 FARM EQUIPMENT ENGINE MECHANIC.SOBR Vomiting No 08/27/24 08:52 FARM EQUIPMENT ENGINE MECHANIC.SOBR Anesthesia Postop Eval I: Fluid Summary Crystalloid volume administer 500 08/27/24 08:52 FARM EQUIPMENT ENGINE MECHANIC.SOBR (ml) Colloids volume administered ( ml) Blood Product volume administered (ml) Total IV fluid infused 500 08/27/24 08:52 FARM EQUIPMENT ENGINE MECHANIC.SOBR Anesthesia Postop Eval I: Summary Notes Anesthesia Complication No 08/27/24 08:52 FARM EQUIPMENT ENGINE MECHANIC.SOBR Anesthesia Complication Comment: Post-operative progress note Anesthesia: Postop Eval II Evaluation Mental status: Awake Pain Level: 0 nausea: No Vomiting: No
== END 2024-08-27 09:26 | disposition home or self-care (01) ==
LOC: EN 06:45 → AC 06:47
PROVIDERS: PCP Nurse Practitioner Family; Referring Provider Nurse Practitioner Family; Visit Provider Surgery
PROC: 0DJD8ZZ Inspection of Lower Intestinal Tract, Via Natural or Artificial Opening Endoscopic (ICD-10-PCS; CPT 45378; principal; 2024-08-27 08:10)
DX: Z12.11 Encounter for screening for malignant neoplasm of colon (principal); I10 Essential (primary) hypertension; Z86.0100 Personal history of colon polyps, unspecified; E78.00 Pure hypercholesterolemia, unspecified; F17.220 Nicotine dependence, chewing tobacco, uncomplicated; Z79.899 Other long term (current) drug therapy
CPT/HCPCS: 45378

== ENCOUNTER → 2024-08-30 | Outpatient (CLI) | payer OTHER, BC, SELFPAY ==
--- NOTE | 2024-08-30 04:00 | CT_ITS ---
PROCEDURE: LIMITED CHEST CT CARDIAC ONLY REASON FOR EXAM: HYPERLIPIDEMIA, HYPERTENSION TECHNIQUE: Supine chest CT without contrast, high resolution CT (HRCT) protocol. One or more dose reduction techniques were used (e.g., Automated exposure control, adjustment of the mA and/or kV according to patient size, use of iterative reconstruction technique). Dose report: CTDI L volume: 12.19 mGy. DLP: 195.04 COMPARISON: None FINDINGS: Hardware: None Lymph nodes: No mediastinal hilar or axillary lymphadenopathy. Heart and Vasculature: The heart is nonenlarged. No significant coronary artery calcification is seen. Coronary Artery Calcifications: No significant coronary artery calcification is seen. Lungs and Airways: The lungs are normally expanded and clear. No septal thickening nodules or abnormal pulmonary opacities. Pleura: No pleural effusion. Upper Abdomen: Unremarkable Bones: Degenerative changes of the thoracic spine. CT/Limited Chest CT Cardiac Only IMPRESSION: Coronary artery calcification (CAC) is is absent Reading Location: [place] [id number]
--- NOTE | 2024-09-06 17:58 | CA.SCORE ---
Calcium Scoring Date of Study:: 08/30/24 Indications Indications: HTN/HLD Coronary Calcium Scoring: High-resolution Computed Tomographic imaging of the chest was performed on [08/30/24 ], with particular attention paid to the coronary arteries. Images from the examination were analyzed for the presence and extent of coronary artery calcification , using coronary calcium quantification software. The patient tolerated the procedure well and there were no complications. The results of the coronary calcification analysis are provided below. Findings Coronary Artery Left Main (LM): 0 Left Anterior Descending (LAD): 0 Left Circumflex (LCX): 0 Right Coronary Artery (RCA): 0 Total Agatston Score: 0 Percentile Rankin Calcium Scoring Interpretation: Different methods to categorize the overall amount of coronary plaque. Overall amount CAC SIS Visual of coronary plaque P1 Mild -100 <2 1-2 vessels with mild amount of plaque P2 Moderate 101-300 3-4 1-2 vessels with moderate amount, 3 vessels with mild amount of plaque P3 Severe 301-999 5-7 3 vessels with moderate amount, 1 vessel with severe amount of plaque P4 Extensive >1000 >8 2-3 vessels with severe amount of plaque Conclusion: No atherosclerotic plaquing noted
== END | disposition home or self-care (01) ==
PROVIDERS: PCP Nurse Practitioner Family; Referring Provider Nurse Practitioner Family; Visit Provider Nurse Practitioner Family
DX: I10 Essential (primary) hypertension (principal); E78.5 Hyperlipidemia, unspecified; F17.290 Nicotine dependence, other tobacco product, uncomplicated
CPT/HCPCS: 75571; 76380